=== PATIENT | male | born 1990 | race Caucasian/White ===

== ENCOUNTER 2017-01-07 11:14 | Emergency (ER) | payer BC ==
[2017-01-07] MEDS ORDERED: Ondansetron HCl/PF 4 MG/2 ML Vial ONE (11:33)
[2017-01-07] MEDS ORDERED: Sodium Chloride 0.9% 1,000 ML ONE (11:33)
[2017-01-07 12:03] LABS: #Eosinphils 0.8 thou/uL (0.0-0.7); #Lymphocytes 0.7 thou/uL (1.20-3.40); #Monocytes 0.7 thou/uL (0.11-0.59); #Neutrophils 7.4 thou/uL (1.40-6.50); %Basophils 0.3 % (0.0-1.0); %Eosinophils 7.9 % (0.0-10.0); %Lymphocytes 6.8 % (21.0-51.0); %Monocytes 7.2 % (0.0-10.0); %Neutrophils 77.9 % (42.0-75.0); Hemoglobin 12.7 g/dL (14.0-18.0); Mean Corpuscular HGB CONC 32.2 g/dL (32.0-36.0); Mean Corpuscular Volume 80.6 fl (80.0-94.0); Mean Platelet Volume 7.7 fL (7.4-10.4); Platelet Count 233 thou/uL (130-400); RBC Distribution Width 15.2 % (11.5-14.5); Red Blood Cell (RBC) Count 4.89 mill/uL (4.70-6.10); White Blood Cell (WBC) Count 9.5 thou/uL (4.8-10.8)
[2017-01-07 12:17] LABS: Albumin 4.5 g/dL (3.5-5.0); Anion Gap 13 mmol/L (10-20); BUN (Urea Nitrogen) 20 mg/dL (8.9-20.6); Calc. Creatinine Clearance 0 mL/min (70-130); Calcium 9.2 mg/dL (7.8-10.44); Carbon Dioxide 26 mmol/L (22-29); Chloride 105 mmol/L (98-107); Estimated GFR-MDRD Greater than 90; Glucose 103 mg/dL (70-105); Potassium 3.8 mmol/L (3.5-5.1); Sodium 140 mmol/L (136-145)
[2017-01-07 12:18] LABS: ALT (SGPT) 35 U/L (8-55); AST (SGOT) 38 U/L (5-34); Alkaline Phosphatase 75 U/L (40-150); Globulin 2.5 g/dL (2.4-3.5)
== END 2017-01-07 12:45 | disposition home or self-care (01) ==
LOC: NAV ERS 11:14
DX: K52.9 Noninfective gastroenteritis and colitis, unspecified (principal)
CPT/HCPCS: 80053; 85025; 96374; J2405; J7050

== ENCOUNTER 2021-08-10 17:16 | Emergency (ER) | payer SELFPAY | END 2021-08-10 18:10 | disposition home or self-care (01) | LOC: NAV ERS 17:16 | DX: J06.9 Acute upper respiratory infection, unspecified (principal) | CPT/HCPCS: 99283 ==

== ENCOUNTER 2022-03-11 15:41 | Emergency (ER) | payer BC ==
[2022-03-11 16:02] LABS: Bilirubin Negative (Negative); Blood, Urine Negative (Negative); Clarity Clear (Clear); Glucose, Urine (Dipstick) Negative (Negative); Ketone, Urine Negative (Negative); Leukocyte Negative (Negative); Nitrite Negative (Negative); Protein, Urine (Dipstick) Negative (Neg-Trace); Specific Gravity, Urine 1.028 (1.002-1.036); Urobilinogen 0.2 mg/dL (Less than 2); pH, Urine 5.5 (5.0-9.0)
[2022-03-12 11:59] LABS: Chlam.trachomatis by PCR,Urine Not Detected (NotDetected)
== END 2022-03-11 17:10 | disposition home or self-care (01) ==
LOC: NAV ERS 15:41
DX: R30.0 Dysuria (principal); R35.0 Frequency of micturition
CPT/HCPCS: 81003; 87491; 87591; 99283